=== PATIENT | female | born 1990 | race Caucasian/White ===

== ENCOUNTER 2025-08-05 04:22 | Emergency (ER) | payer SELFPAY ==
[~2025-08-05] VITALS: Ht 162.6 cm; Wt 64.0 kg
[2025-08-05 04:27] VITALS: TEMP 98; O2SAT 99
[2025-08-05 07:40] VITALS: BP 128/74; PULSE 88; RESP 14; O2SAT 100
== END 2025-08-05 07:44 | disposition home or self-care (01) ==
LOC: ER 04:22
DX: F41.0 Panic disorder [episodic paroxysmal anxiety] (principal); F15.929 Other stimulant use, unspecified with intoxication, unspecified; F41.9 Anxiety disorder, unspecified
CPT/HCPCS: 93005; 99283